=== PATIENT | male | born 1950 | race Two or more races ===

== ENCOUNTER 2017-11-13 12:58 | Emergency (ER) | payer BC, OTHER | END 2017-11-13 13:22 | disposition home or self-care (01) | LOC: ER 12:58 | DX: S60.222A Contusion of left hand, initial encounter (principal); W23.0XXA Caught, crushed, jammed, or pinched between moving objects, initial encounter; Y93.89 Activity, other specified; Y92.89 Other specified places as the place of occurrence of the external cause; Y99.8 Other external cause status | CPT/HCPCS: 99281 ==